=== PATIENT | female | born 1965 | race Caucasian/White ===

== ENCOUNTER 2017-04-10 09:18 | Emergency (ER) | payer BC ==
[~2017-04-10] VITALS: Ht 162.6 cm; Wt 99.8 kg
[2017-04-10 09:24] VITALS: BP_SYST 136
[2017-04-10 10:10] VITALS: BP_SYST 129
== END 2017-04-10 10:10 | disposition home or self-care (01) ==
LOC: SED 09:18
DX: S93.492A Sprain of other ligament of left ankle, initial encounter (principal); X58.XXXA Exposure to other specified factors, initial encounter; Y93.89 Activity, other specified; Y92.89 Other specified places as the place of occurrence of the external cause; Y99.8 Other external cause status
CPT/HCPCS: 99284

== ENCOUNTER 2019-06-03 05:22 | Emergency (ER) | payer BC ==
[~2019-06-03] VITALS: Ht 162.6 cm; Wt 97.5 kg
[2019-06-03 05:45] VITALS: BP_SYST 130
--- NOTE | 2019-06-03 05:48 | NUR ---
Patient to ER bed 06 to gown for evaluation. Side rails up. Report given to VALENCIA Conde
--- NOTE | 2019-06-03 06:02 | NUR ---
Dr. Lovelace bedside for Pt eval
--- NOTE | 2019-06-03 06:05 | NUR ---
Pt BIB family to ED C/O right leg pain starting this morning that shoots up leg from toes to hip VSS no s/s of acute distress. No other injuries and or complaints noted Resting on gurney rails up
[2019-06-03] MEDS ORDERED: KETOROLAC TROMETHAMINE 30 MG VIAL IM ONE (06:15)
--- NOTE | 2019-06-03 07:14 | NUR ---
Report recieved from VALENCIA Conde for continuation of care.
[2019-06-03 07:30] VITALS: BP_SYST 124
--- NOTE | 2019-06-03 07:30 | NUR ---
Patient given written and verbal discharge instructions and verbalizes understanding. ER MD discussed with patient the results and treatment provided. Patient in stable condition. ID arm band removed. Rx of valium, naprosyn given. Patient educated on pain management and to follow up with PMD. Pain Scale 5/10, MD is aware. Opportunity for questions provided and answered. Medication side effect fact sheet provided.
== END 2019-06-03 07:30 | disposition home or self-care (01) ==
LOC: SED 05:22
DX: M54.30 Sciatica, unspecified side (principal)
CPT/HCPCS: 72100; 96372; 99283; J1885

== ENCOUNTER 2022-02-06 17:33 | Inpatient (IN) | payer BC ==
[~2022-02-06] VITALS: Ht 162.6 cm; Wt 104.1 kg
[2022-02-06 17:47] VITALS: BP_SYST 124
--- NOTE | 2022-02-06 17:54 | NUR ---
Patient to ER bed 4 to gown for evaluation. Side rails up. Report given to MERLYN BIRMINGHAM.
--- NOTE | 2022-02-06 17:58 | NUR ---
Pt endorsed to Suzie BIRMINGHAM. Pt reports having dizziness, nausea/vomiting and fever x 3 days. Pt h/o DM.
[2022-02-06] MEDS ORDERED: NACL 0.9% 1,000 ML IV ONE ×4 (18:00→20:45)
--- NOTE | 2022-02-06 18:00 | NUR ---
ER at bedside examining patient.
--- NOTE | 2022-02-06 18:25 | NUR ---
# 20 gauge angiocath placed to left AC. Use of asceptic technique. Opsite placed over site. Blood return noted. Flushed with 10 cc of normal saline. No evidence of infiltration noted. Patient tolerated well.
--- NOTE | 2022-02-06 18:30 | NUR ---
Covid swab done and sent to lab.
--- NOTE | 2022-02-06 18:32 | NUR ---
EKG performed at by Suzie BIRMINGHAM. Physician given copy of EKG for review.
[2022-02-06 18:35] LABS: BASOPHILS % (AUTO) 0.4 % (0.0-2.0); EOSINOPHILS # (AUTO) 0.1 K/uL (0.0-0.4); EOSINOPHILS % (AUTO) 0.9 % (0.0-4.0); HEMATOCRIT 36.7 % (36-48); HEMOGLOBIN 12.1 g/dL (12.0-16.0); LYMPHOCYTES # (AUTO) 1.2 K/uL (1.0-5.5); LYMPHOCYTES % (AUTO) 10.2 % (20.5-51.5); MEAN CORPUSCULAR HEMOGLOBIN 27 pg (27-31); MEAN CORPUSCULAR HGB CONC 33 % (32-36); MEAN CORPUSCULAR VOLUME 83 fL (79.0-98.0); MONOCYTES # (AUTO) 0.8 K/uL (0.0-1.0); MONOCYTES % (AUTO) 7.1 % (1.7-9.3); NEUTROPHILS # (AUTO) 9.7 K/uL (1.8-7.7); NEUTROPHILS % (AUTO) 81.4 % (40.0-70.0); PLATELET COUNT (AUTO) 314 K/uL (130-430); RED BLOOD CELL COUNT(AUTO) 4.43 MIL/uL (4.2-6.2); RED CELL DISTRIBUTION WIDTH 16.5 % (9.0-15.0); WHITE BLOOD COUNT (AUTO) 11.9 K/uL (4.8-10.8)
[2022-02-06 18:48] LABS: CALCIUM 8.6 mg/dL (8.4-11.0); CREATININE 1.72 mg/dL (0.55-1.30); POTASSIUM 3.9 mmol/L (3.5-5.1)
[2022-02-06 19:08] LABS: ALBUMIN 2.7 g/dL (3.4-4.8); TOTAL BILIRUBIN 0.4 mg/dL (0.0-1.0)
--- NOTE | 2022-02-06 19:08 | NUR ---
Report given to Megan BIRMINGHAM to assume care.
--- NOTE | 2022-02-06 19:16 | NUR ---
ASSUME CARE OF THIS PATIENT AAO X4, NO SOB NOTED AND NOT IN ANY DISTRESS AT THIS TIME, PT STATES THAT SHE HAS NO DIZZINESS WHILE LYING, DENIES CHESTPAIN AND DENIES ANY HEAD ACHE. INFORMED PT ON PLAN OF CARE, WILL CONTINUE TO MONITOR,
--- NOTE | 2022-02-06 19:49 | NUR ---
INFORMED DR. JAUREGUI THAT PT UNABLE TO URINATE AT THIS TIME, ORDER RECEIVED TO GIVE ANOTHER 1 LITER OF NS BOLUS.
--- NOTE | 2022-02-06 20:39 | NUR ---
AT BEDSIDE FOR RE EVAL, PT WAS UPDATED ON HER STATUS AND INFORMED THAT SHE WILL BE ADMITTED AND SHE VERBALIZED UNDERSTANDING
--- NOTE | 2022-02-06 20:45 | NUR ---
Admit bed requested Patient will be admitted to care of . Admitted to TELE unit. Diagnosis NABIL,DEHYDRATION Inpatient (Yes or No) YES Observation (Yes or No) NO Orientation concerns or request close to nursing station (Yes or No) NO Covid Status NEGATIVE On vent or bipap NO Isolation requirements NO Needs a sitter NO From Home (Yes or if No enter name of facility) YES Requires Dialysis (Yes or No) NO Med Rec Completed (Yes of No) PENDING
[2022-02-06] MEDS ORDERED: METOCLOPRAMIDE HCL 10 MG/2 ML VIAL IVP PRN (21:45)
[2022-02-06] MEDS ORDERED: ACETAMINOPHEN 325 MG TABLET PO PRN (21:45)
[2022-02-06] MEDS ORDERED: ONDANSETRON HCL 4 MG/2 ML VIAL IVP PRN (21:45)
[2022-02-06] MEDS ORDERED: DEXTROSE 50% JECT 50 ML DISP.SYRIN IVP PRN (21:45)
[2022-02-06] MEDS ORDERED: INSULIN REGULAR, HUMAN 100 UNITS/ML, 10 ML VIAL (humuLIN R) SUBCUT PRN (21:45)
--- NOTE | 2022-02-06 22:40 | NUR ---
ADMIT NOTE Received pt from ER to with a diagnosis of NABIL, Dehydration. Admission process initiated. patient oriented to pain management, safety and call light-teach back done.
--- NOTE | 2022-02-06 22:45 | NUR ---
TRANSFER PT TO ROOM 110B [facility]IA [facility] AAOX4, NO SOB NOTED AND DENIES DIZZINESS. SBAR REPORT GIVEN TO CATHY BIRMINGHAM
--- NOTE | 2022-02-06 22:50 | NUR ---
ADMISSION NOTE Received patient from ER via gurney. Patient admitted with diagnosis of NABIL/DEHYDRATION. Patient is awake, alert, oriented X 4. Patient oriented to hospital room, call light, toileting, pain management and safety-teach back done. Patient informed that their room number is 110B. Personal belongings checked and Belongings List documented. Call light within reach.
[2022-02-06 23:00] VITALS: BP_SYST 131
[2022-02-06 23:07] LABS: BILIRUBIN,URINE NEGATIVE (NEGATIVE); BLOOD, URINE 3+ (NEGATIVE); CLARITY/URINE CLEAR (CLEAR); GLUCOSE,URINE NEGATIVE (NEGATIVE); KETONES,URINE 2+ (NEGATIVE); LEUKOCYTE ESTERASE ,URINE 3+ (NEGATIVE); NITRITE, URINE POSITIVE (NEGATIVE); PH,URINE 6.5 (5.0-8.0); PROTEIN URINE 1+ (NEGATIVE); UROBILINOGEN,URINE 0.2 (0.2-1.0)
[2022-02-06 23:28] LABS: LIPASE 47 U/L (73-393)
[2022-02-06 23:30] LABS: COLOR,URINE YELLOW (YELLOW)
[2022-02-06 23:31] LABS: BACTERIA,URINE RARE /HPF (None Seen); CALCIUM OXALATE CRYSTALS,UR None Seen /HPF (None Seen); CALCIUM PHOSPHATE CRYSTALS,UR None Seen /HPF (None Seen); TRICHOMONAS,URINE None Seen /HPF (None Seen); YEAST,URINE None Seen /HPF (None Seen)
[2022-02-07] VITALS: BP_SYST 131
[2022-02-07] MEDS ORDERED: cefTRIAXone 1 GM in D5W 50 ML IV SCH ×2
[2022-02-07] MEDS ORDERED: cefTRIAXone 1 GM VIAL ONE (00:39)
[2022-02-07] MEDS: NACL 0.9% 1,000 ML IV SCH ×3 (00:58→20:42)
[2022-02-07] MEDS: ACETAMINOPHEN 325 MG TABLET PO PRN ×2 (01:14→11:37)
[2022-02-07 02:01] LABS: BARBITURATE, URINE NEGATIVE (NEG <=200); BENZODIAZEPINE, URINE NEGATIVE (NEG <=150); CANNABINOID, URINE NEGATIVE (NEG <=50); COCAINE, URINE NEGATIVE (NEG <=150); METHAMPHETAMINES SCREEN,URINE NEGATIVE (NEG <=500); OPIATE, URINE NEGATIVE (NEG <=100); PHENCYCLIDINE SCREEN,URINE NEGATIVE (NEG <=25); UR TRICYCLIC ANTIDEPRESSANTS NEGATIVE (NEG <=300); URINE AMPHETAMINE NEGATIVE (NEG <=500); URINE METHADONE NEGATIVE (NEG <=200); URINE OXYCODONE SCREEN NEGATIVE (NEG <=100); URINE PROPOXYPHENE SCREEN NEGATIVE (NEG <=300)
--- NOTE | 2022-02-07 05:39 | NUR ---
CONSULTATION PAGED/CALLED Reason for Consultation: FEVER Person Who was Notified: KITTY Consulting Physician: ROGER [employer] Supp[employer] Specialty: Ordering Physician: MASON
[2022-02-07 06:42] LABS: BASOPHILS # (AUTO) 0.1 K/uL (0.0-0.2); BASOPHILS % (AUTO) 0.5 % (0.0-2.0); EOSINOPHILS # (AUTO) 0.2 K/uL (0.0-0.4); EOSINOPHILS % (AUTO) 2.2 % (0.0-4.0); HEMATOCRIT 30.9 % (36-48); HEMOGLOBIN 10.6 g/dL (12.0-16.0); LYMPHOCYTES # (AUTO) 1.6 K/uL (1.0-5.5); LYMPHOCYTES % (AUTO) 15.9 % (20.5-51.5); MEAN CORPUSCULAR HEMOGLOBIN 28 pg (27-31); MEAN CORPUSCULAR HGB CONC 34 % (32-36); MEAN CORPUSCULAR VOLUME 81 fL (79.0-98.0); MONOCYTES # (AUTO) 0.8 K/uL (0.0-1.0); NEUTROPHILS # (AUTO) 7.6 K/uL (1.8-7.7); NEUTROPHILS % (AUTO) 73.4 % (40.0-70.0); PLATELET COUNT (AUTO) 279 K/uL (130-430); RED BLOOD CELL COUNT(AUTO) 3.79 MIL/uL (4.2-6.2); RED CELL DISTRIBUTION WIDTH 16.1 % (9.0-15.0); WHITE BLOOD COUNT (AUTO) 10.3 K/uL (4.8-10.8)
--- NOTE | 2022-02-07 06:54 | NUR ---
Closing note Pt awake resting in bed. No s/s of respiratory distress. Breathing even and unlabored. IV site intact and patent with fluids running at ordered rate. All needs met throughout shift. Fall and safety precautions in place with bed in lowest position and call light within reach
--- NOTE | 2022-02-07 07:30 | NUR ---
Report received from VALENCIA Saravia for continuity of care. Patient in stable condition. Resting. No distress noted.
[2022-02-07] MEDS: PANTOPRAZOLE SODIUM 40 MG/VIAL (PROTONIX) IVP SCH ×2 (09:12→20:42)
[2022-02-07 09:35] LABS: ALBUMIN 2.1 g/dL (3.4-4.8); CALCIUM 7.1 mg/dL (8.4-11.0); CREATININE 1.18 mg/dL (0.55-1.30); POTASSIUM 3.9 mmol/L (3.5-5.1); TOTAL BILIRUBIN 0.3 mg/dL (0.0-1.0)
[2022-02-07 11:19] VITALS: BP_SYST 116
[2022-02-07 12:00] VITALS: BP_SYST 132
--- NOTE | 2022-02-07 15:22 | NUR ---
Reported to Dr. Marinelli patient's procalcitonin level. No new orders at this time.
[2022-02-07 16:00] VITALS: BP_SYST 128
[2022-02-07] MEDS ORDERED: BISACODYL 5 MG TABLET.DR (DULCOLAX) PO PRN (18:00)
[2022-02-07] MEDS ORDERED: BISACODYL 10 MG/SUPPOSITORY RC PRN (18:00)
[2022-02-07] MEDS: PIPERACILLIN/TAZO 3.375/DEX-IS 50 ML IV SCH ×2 (19:16→23:30)
--- NOTE | 2022-02-07 20:00 | NUR ---
Opening notes. (late entry) 19:30. Patient is awake and alert x 4. No s/s of distress or bleeding. Patient reports mild lower back pain but sister will come and bring her heating pad which usually helps her with her back pain.
--- NOTE | 2022-02-07 20:03 | NUR ---
Report given to VALENCIA Rios for continuity of care. Patient in stable condition. No distress noted. Patient in stable condition. No distress indicated. Patient able to move around.
[2022-02-07 21:00] VITALS: BP_SYST 122
--- NOTE | 2022-02-07 22:57 | NUR ---
21:00. All due meds given, tolerated well. Resting comfortably on bed with her heating pad on. 22:00 IV changed to right forearm gauge 20 patent and with good blood return, removed Left AC gauge 20 , intact catheter. Tolerated well.
[2022-02-08 00:38] VITALS: BP_SYST 150
--- NOTE | 2022-02-08 02:13 | NUR ---
IVF paused per pt's request. Multiple bathroom episodes reported. Sodium level as of 02/07/2022 = 136.
--- NOTE | 2022-02-08 04:19 | NUR ---
Pt reported 7/10 pain on her lower back and she only has tylenol PRN for mild pain 1-3 pain scale. MD was paged, awaiting call back.
[2022-02-08] MEDS ORDERED: traMADol HCL HCL 50 MG TABLET (ULTRAM) PO PRN (05:00)
--- NOTE | 2022-02-08 05:01 | NUR ---
Called and spoke with Dr. Marinelli, ordered Ultram 50 mg every 4 hours PRN for mod-severe pain 4-10 scale. Patient was made aware. Awaiting pharmacy to process medication.
[2022-02-08 05:23] VITALS: BP_SYST 152
[2022-02-08] MEDS: NACL 0.9% 1,000 ML IV SCH (06:15)
[2022-02-08] MEDS: PIPERACILLIN/TAZO 3.375/DEX-IS 50 ML IV SCH ×2 (06:21→12:04)
--- NOTE | 2022-02-08 06:45 | NUR ---
CLOSING NOTES: No significant changes/events overnight. No apparent distress or active bleeding observed. IVF NS at 100 ml/hr resumed. All due meds given, accucheck done. Patient reported tolerable lower back pain 4/10 and prefers sitting on the chair as her back pain worsens when she's lying down on bed. Will endorse to am Nurse.
[2022-02-08 06:55] LABS: BASOPHILS # (AUTO) 0.1 K/uL (0.0-0.2); BASOPHILS % (AUTO) 0.7 % (0.0-2.0); EOSINOPHILS # (AUTO) 0.2 K/uL (0.0-0.4); EOSINOPHILS % (AUTO) 2.3 % (0.0-4.0); HEMATOCRIT 32.3 % (36-48); LYMPHOCYTES # (AUTO) 1.6 K/uL (1.0-5.5); LYMPHOCYTES % (AUTO) 17.8 % (20.5-51.5); MEAN CORPUSCULAR HEMOGLOBIN 28 pg (27-31); MEAN CORPUSCULAR HGB CONC 34 % (32-36); MEAN CORPUSCULAR VOLUME 82 fL (79.0-98.0); MONOCYTES # (AUTO) 0.8 K/uL (0.0-1.0); NEUTROPHILS # (AUTO) 6.1 K/uL (1.8-7.7); NEUTROPHILS % (AUTO) 70.2 % (40.0-70.0); PLATELET COUNT (AUTO) 343 K/uL (130-430); RED BLOOD CELL COUNT(AUTO) 3.95 MIL/uL (4.2-6.2); RED CELL DISTRIBUTION WIDTH 16.6 % (9.0-15.0); WHITE BLOOD COUNT (AUTO) 8.7 K/uL (4.8-10.8)
[2022-02-08 07:23] LABS: CALCIUM 8.2 mg/dL (8.4-11.0); CREATININE 1.19 mg/dL (0.55-1.30); POTASSIUM 3.8 mmol/L (3.5-5.1)
[2022-02-08] MEDS: PANTOPRAZOLE SODIUM 40 MG/VIAL (PROTONIX) IVP SCH (08:19)
[2022-02-08 08:20] VITALS: BP_SYST 140
--- NOTE | 2022-02-08 08:20 | NUR ---
Patient stable; sitting in chair at bedside with no distress noted. Denies any pain at this time.
--- NOTE | 2022-02-08 11:38 | NUR ---
Patient sitting in chair with Dr. Marinelli at bedside. Patient stable.
[2022-02-08] MEDS ORDERED: AUG875 PO (11:47)
[2022-02-08] MEDS ORDERED: L. A1CAP12 PO (11:49)
[2022-02-08 12:05] VITALS: BP_SYST 128
--- NOTE | 2022-02-08 12:05 | NUR ---
Scheduled IV abx given per order. Checked blood sugar: 137 mg/dl - no coverage required. Patient stable; sitting in chair at bedside.
--- NOTE | 2022-02-08 12:13 | NUR ---
Checked blood sugar: 137 mg/dl - no coverage required. Patient stable; sitting in chair at bedside.
[2022-02-08 13:20] VITALS: BP_SYST 128
--- NOTE | 2022-02-08 13:58 | NUR ---
Discharge instructions Both written and verbal discharge instructions given to patient. Encouraged to follow up with PCP in 1 week. also instructed to resume home medications and to fill written prescription for amoxicillin and acidophilus (Dr. Marinelli gave written prescription to patient). Patient given medication reconciliation form. Exit Care provided. Patient verbalized understanding. MD discussed with patient the results and treatment provided. Ambulatory with steady gait for discharge to home. Patient in stable condition; ID band removed. Peripheral IV catheter removed intact with minimal bleeding; pressure dressing applied to site. Patient stable at this time.
--- NOTE | 2022-02-08 14:42 | NUR ---
Discharge Patient taken to vehicle via wheelchair, accompanied by staff and family members. No distress noted at time of discharge. Addendum: 02/08/22 at 1505 by Jamila Palacios RN Patient requested an 'excuse note for work' for 2-[address] Marinelli's office, spoke with Gertrudis. Per Gertrudis; patient can return to hospital on tomorrow and burr picker note. Will call deborah Tony) at [phone] when note is ready.
--- NOTE | 2022-02-08 16:00 | NUR ---
Called Andrea at [phone] and advised that 'Excuse from work' note is ready and can be picked up in Lobby at hr receptionist desk.
== END 2022-02-08 14:41 | disposition home or self-care (01) | DRG 871 ==
LOC: SED 17:33 → SMU 20:38 → STU 22:14
PROVIDERS: ADMIT Internal Medicine; ATTEND Internal Medicine
DX: A41.9 Sepsis, unspecified organism (principal); N17.0 Acute kidney failure with tubular necrosis; E44.0 Moderate protein-calorie malnutrition; N12 Tubulo-interstitial nephritis, not specified as acute or chronic; E11.42 Type 2 diabetes mellitus with diabetic polyneuropathy; I10 Essential (primary) hypertension; E86.0 Dehydration; E11.21 Type 2 diabetes mellitus with diabetic nephropathy; E66.9 Obesity, unspecified; Z20.822 Contact with and (suspected) exposure to COVID-19; Z68.39 Body mass index [BMI] 39.0-39.9, adult
CPT/HCPCS: 36415; 71045; 76770; 80048; 80053; 80307; 81000; 82550; 82962; 83036; 83605; 83690; 84443; 85025; 87040; 87086; 93005; 96360; 96361; 99285; C9113; G0378; J0696; J1956; J2405; J2543; J7030; J7060